=== PATIENT | male | born 1965 | race Caucasian/White ===

== ENCOUNTER 2018-03-18 18:23 | Emergency (ER) | payer BC ==
[~2018-03-18] VITALS: Ht 175.3 cm; Wt 52.2 kg
[2018-03-18 18:30] VITALS: BP 144/90
[2018-03-18] MEDS: KETOROLAC 30 MG/ML VIAL IVP ONE (19:38)
[2018-03-18] MEDS: NACL 0.9% 1,000 ML IV SCH (19:38)
[2018-03-18 20:00] LABS: HEMATOCRIT 50.1 % (36-52); HEMOGLOBIN 16.7 g/dL (12.0-18.0); MEAN CORPUSCULAR VOLUME 84.7 fL (80-94); RED BLOOD CELL COUNT(AUTO) 5.92 MIL/uL (4.20-6.10); WHITE BLOOD COUNT (AUTO) 5.9 K/uL (4.8-10.8)
[2018-03-18 20:01] LABS: BASOPHILS % (AUTO) 0.5 % (0.0-2.0); EOSINOPHILS % (AUTO) 0.5 % (0.0-4.0); LYMPHOCYTES # (AUTO) 2.2 K/uL (2.0-11.5); LYMPHOCYTES % (AUTO) 37.2 % (20.5-51.1); MEAN CORPUSCULAR HEMOGLOBIN 28 pg (27-31); MEAN CORPUSCULAR HGB CONC 33 g/dL (33-37); MONOCYTES # (AUTO) 0.5 K/uL (0.8-1.0); MONOCYTES % (AUTO) 8.5 % (1.7-9.3); NEUTROPHILS # (AUTO) 3.2 K/uL (1.8-7.7); NEUTROPHILS % (AUTO) 53.3 % (42.2-75.2); PLATELET COUNT (AUTO) 183 K/uL (140-450); RED CELL DISTRIBUTION WIDTH 13.3 % (11.6-13.7)
[2018-03-18 20:04] LABS: APPEARANCE,URINE CLEAR (CLEAR); BILIRUBIN,URINE NEGATIVE (NEGATIVE); BLOOD, URINE NEGATIVE (NEGATIVE); COLOR,URINE YELLOW (YELLOW); LEUKOCYTE ESTERASE ,URINE NEGATIVE (NEGATIVE); NITRITE, URINE NEGATIVE (NEGATIVE); UGLUCOSE 3+ (NEGATIVE)
[2018-03-18 20:07] LABS: CARBON DIOXIDE 29.1 mmol/L (21-32); POTASSIUM 4.1 mmol/L (3.5-5.1)
[2018-03-18 20:21] LABS: ALBUMIN 4.3 g/dL (3.4-5.0); TOTAL BILIRUBIN 0.5 mg/dL (0.0-1.0)
[2018-03-18] MEDS: INSULIN REGULAR, HUMAN 100 UNIT/ML VIAL IVP ONE (20:29)
[2018-03-18 21:05] VITALS: BP 131/79
== END 2018-03-18 21:05 | disposition home or self-care (01) ==
LOC: MED 18:23
DX: E11.9 Type 2 diabetes mellitus without complications (principal); R10.32 Left lower quadrant pain; R11.0 Nausea
CPT/HCPCS: 36415; 74176; 80053; 81003; 83690; 85025; 96374; 99285; J1815; J1885

== ENCOUNTER 2023-09-13 13:59 | Emergency (ER) | payer BC, OTHER ==
[~2023-09-13] VITALS: Ht 172.7 cm; Wt 87.1 kg
[2023-09-13 14:16] VITALS: BP 151/93; PULSE 79; RESP 20; TEMP 98.6; O2SAT 95
[2023-09-13] MEDS ORDERED: AMOX-999 PO (15:34)
== END 2023-09-13 15:37 | disposition home or self-care (01) ==
LOC: MED 13:59
DX: J34.89 Other specified disorders of nose and nasal sinuses (principal); Z79.899 Other long term (current) drug therapy
CPT/HCPCS: 70160; 99283